=== PATIENT | male | born 1995 ===

== ENCOUNTER 2018-03-22 15:59 | Emergency (ER) | payer OTHER ==
[2018-03-22 16:28] VITALS: BP 126/77; PULSE 62; RESP 18; TEMP 98.6; O2SAT 97
--- NOTE | 2018-03-22 16:36 | C.PDOC ---
History Of Present Illness 23 yo male come in for evaluation of left lower toothache gradually developed for past 3 days associated with mild facial swelling since today AM. Pt sts, " i think my wisdom tooth is coming up". Otherwise, pt denies fever, chills, known trauma or injury, headache, dizziness, drooling, sore throat, trismus, CP, SOB, dyspnea, denies recent dental work. Ambulate to ED for evaluation, not n any apparent distress. Time Seen by Provider: 03/22/18 16:29 Chief Complaint (Nursing): Dental Pain History Per: Patient Past Medical History Reviewed: Historical Data, Nursing Documentation, Vital Signs Vital Signs: Last Vital Signs Temp 98.6 F 03/22/18 16:28 Pulse 62 03/22/18 16:28 Resp 18 03/22/18 16:28 BP 126/77 03/22/18 16:28 Pulse Ox 97 03/22/18 16:28 - Medical History PMH: No Chronic Diseases Family History: States: No Known Family Hx - Social History Hx Tobacco Use: Yes Hx Alcohol Use: Yes (social) Hx Substance Use: No - Immunization History Hx Tetanus Toxoid Vaccination: No Hx Pneumococcal Vaccination: No Review Of Systems Except As Marked, All Systems Reviewed And Found Negative. Constitutional: Negative for: Fever, Chills ENT: Positive for: Mouth Pain, Mouth Swelling. Negative for: Ear Discharge, Nose Discharge, Throat Pain, Throat Swelling Cardiovascular: Negative for: Chest Pain, Palpitations, Edema, Light Headedness Respiratory: Negative for: Cough, Shortness of Breath, Wheezing Gastrointestinal: Negative for: Nausea, Vomiting Musculoskeletal: Negative for: Neck Pain Neurological: Negative for: Weakness, Numbness, Altered Mental Status, Headache, Dizziness Physical Exam - Physical Exam Appears: Well, Non-toxic, No Acute Distress Skin: Normal Color, Warm, Dry, No Rash Head: Normacephalic Eye(s): bilateral: PERRL Ear(s): Bilateral: Normal Nose: No Flaring, No Discharge Oral Mucosa: Moist, No Drooling, No Trismus Tongue: Normal Appearing Lips: Normal Appearing Teeth: Tender To Palpation (Left lower wisdom) Gingiva: Erythema (mild over left lower wisdom), Swelling (left lower wisdom), Tender (left lower wisdom), No Abscess, Other (mild edema over left mandible angle, no erythema, no flactulance.) Throat: No Erythema, No Drooling Neck: Trachea Midline, Supple Lymphatic: Adenopathy (left anterior cervical, mild) Cardiovascular: Rhythm Regular Respiratory: No Decreased Breath Sounds, No Accessory Muscle Use, No Stridor, No Wheezing Gastrointestinal/Abdominal: Normal Exam Extremity: Normal ROM, No Swelling Neurological/Psych: Oriented x3, Normal Speech ED Course And Treatment O2 Sat by Pulse Oximetry: 97 Pulse Ox Interpretation: Normal Progress Note: On re-evaluation, pt is afebrile, hemodynamicaly stable. Non- toxic. Tolerate PO well in ED. PulsEOx 97% RA. ENT: exam c/w mild left lower gingivitis over wisdom tooth due to tooth eruption. uvula midline, no drooling, no trismus. No evidence of tooth abscess. neck: SUpple, (-) meningeal sign. Lungs: CTA B/L, BS equal B/L. Pt deniesany known allergy to medication including Penicillin. Pt advised. ref. to F/u with DEntist in 2-3 days for re-eval. return if any new changes. Disposition Counseled Patient/Family Regarding: Diagnosis, Need For Followup, Rx Given - Disposition Referrals: [facility] [Provider Group] [facility] [Provider Group] Disposition: HOME/ ROUTINE Disposition Time: 16:34 Condition: STABLE Additional Instructions: Warm compresses Take medication as prescribed Follow up with Dentist in 2-3 days for re-evaluation. return to ED if any worsening or new changes. Prescriptions: Ibuprofen [Motrin Tab] 600 mg PO BID #20 tab Penicillin VK [Penicillin VK Tab] 2 tab PO BID #28 tab Instructions: Dental Pain - Clinical Impression Clinical Impression: Pain, dental
== END 2018-03-22 17:01 | disposition home or self-care (01) ==
LOC: C.ER 15:59
DX: K08.89 Other specified disorders of teeth and supporting structures (principal)